=== PATIENT | female | born 1950 | race American Indian/Alaskan Native ===

== ENCOUNTER 2019-09-20 08:20 | Emergency (ER) | payer MEDICARE ==
[2019-09-20 08:26] VITALS: BP 121/76
[2019-09-20] MEDS ORDERED: LIDOCAINE (1%) 10 MG/1 ML VIAL 20 ML MDV INFILTRATI ONE (08:49)
--- NOTE | 2019-09-20 08:54 | Emergency Department Report ---
ED Laceration HPI - HPI Chief Complaint: Laceration/Recheck/Suture Stated Complaint: L FINGER LACERATION Time Seen by Provider: 09/20/19 08:48 Occurred When: Today Severity: moderate Tetanus Status: Not up to Date Laceration Symptoms: Yes Pain, No Foreign Body Sensation, No Numbness, No Weakness ED Review of Systems ROS: Stated complaint: L FINGER LACERATION Other details as noted in HPI Comment: All other systems reviewed and negative Skin: other (LEFT 2ND FINGER LACERATION ) ED Past Medical Hx - Past Medical History Previous Medical History?: Yes Hx Hypertension: Yes - Surgical History Past Surgical History?: No - Social History Smoking Status: Never Smoker Laceration Physical Exam - Exam General: Vital signs noted. No distress. Alert and acting appropriately. Wound Length (cm): 2 Laceration Location: Other Laceration Exam: Yes Normal Distal CMS, No Foreign Body, No Exposed Tendon, Vessel, or Nerve, No Tendon Injury ED Course Vital Signs 09/20/19 08:24 Temperature 97.3 F L Pulse Rate 80 Respiratory 16 Rate Blood Pressure 121/76 [Right] O2 Sat by Pulse 98 Oximetry - Laceration /Wound Repair Left Distal Finger Wound Location: upper extremity (left index finger) Wound's Depth, Shape: superficial, flap Wound Explored: clean Irrigated w/ Saline (ccs): 30 Betadine Prep?: Yes Anesthesia: 1% Lidocaine Volume Anesthetic (ccs): 5 Suture Size/Type: 4:0 Number of Sutures: 5 Sterile Dressing Applied?: Yes ED Medical Decision Making - Medical Decision Making This is a 69-year-old female. She states approximately 7 AM this morning while cutting potatoes with her new knife she accidentally cut her left second distal phalanx. Tetanus updated. Wound closed with 5 4.0 nylon sutures. Bleeding stopped after wound closure. Pt tolerated well. Wound care and follow up instructions given. She verbalizes understanding Critical Care Time: No Critical care attestation.: If time is entered above; I have spent that time in minutes in the direct care of this critically ill patient, excluding procedure time. ED Disposition Clinical Impression: Laceration of finger Qualifiers: Encounter type: initial encounter Finger: index finger Damage to nail status: without damage Foreign body presence: without foreign body Laterality: left Qualified Code(s): S61.211A - Laceration without foreign body of left index finger without damage to nail, initial encounter Disposition: TO HOME OR SELFCARE Is pt being admited?: No Does the pt Need Aspirin: No Condition: Stable Instructions: Suture Care (ED) Additional Instructions: Keep wound clean and dry. Do not apply any ointments. Follow up in 7-10 days for suture removal with your doctor or return to the ER. Follow up immediately if you develop fever drainage increase pain and swelling of your finger. [facility]: [facility] [Other] - 3-5 Days Time of Disposition: 09:46
[2019-09-20] MEDS ORDERED: NEOMY 3.5 MG/BACIT 400 UNITS/POLY B 5000 UNITS/GM OINT PACKET TP ONE (09:39)
[2019-09-20] MEDS ORDERED: BACITRACIN/POLYMYXIN B OINT 28.35 GM TP ONE (10:00)
[2019-09-20] MEDS ORDERED: TETANUS,DIPHTHERIA TOXOID ADULT 0.5 ML INJ IM ONE (10:00)
== END 2019-09-20 10:01 | disposition home or self-care (01) ==
LOC: ED 08:20
DX: S61.211A Laceration without foreign body of left index finger without damage to nail, initial encounter (principal); I10 Essential (primary) hypertension; W45.8XXA Other foreign body or object entering through skin, initial encounter; Y93.89 Activity, other specified; Y92.89 Other specified places as the place of occurrence of the external cause; Y99.8 Other external cause status
CPT/HCPCS: 90471; 90714; 99282; A6250